=== PATIENT | male | born 1960 | race African-American/Black ===

== ENCOUNTER 2020-04-21 19:52 | Emergency (ER) | payer MEDICAID ==
[~2020-04-21] VITALS: Ht 182.9 cm; Wt 99.0 kg
[2020-04-21] MEDS ORDERED: DIPHENHYDRAMINE 25MG CAPSULE PO ONE (22:30)
[2020-04-21 22:33] LABS: CLARITY URINE CLEAR (CLEAR); COLOR URINE DARK YELLOW (YELLOW); KETONES URINE 1+ (NEGATIVE); LEUKOCYTE ESTERASE URINE TRACE (NEGATIVE); NITRITE URINE NEGATIVE (NEGATIVE); OCCULT BLOOD URINE TRACE (NEGATIVE); PH URINE 5.5 (4.5-8.0); PROTEIN URINE 2+ (NEGATIVE); SPECIFIC GRAVITY URINE 1.034 (1.005-1.030)
[2020-04-21 22:43] LABS: *AMPHETAMINES SCREEN URINE NEGATIVE (NEGATIVE); *BARBITURATES SCREEN URINE NEGATIVE (NEGATIVE); *BENZODIAZEPINES SCREEN URINE NEGATIVE (NEGATIVE)
[2020-04-21 22:44] LABS: *COCAINE SCREEN URINE PRESUMTIVE POSITIVE (NEGATIVE); CANNABINOID URINE SCREEN NEGATIVE (NEGATIVE); METHADONE URINE SCREEN NEGATIVE (NEGATIVE); OPIATES URINE SCREEN NEGATIVE (NEGATIVE); PHENCYCLIDINE URINE SCREEN NEGATIVE (NEGATIVE)
[2020-04-22 00:16] LABS: BASOPHILS % 2.2 % (0.0-2.0); EOSINOPHILS % 1.1 % (0.0-5.0); HEMATOCRIT. 41.9 % (42.0-52.0); HEMOGLOBIN. 13.8 g/dL (14.0-18.0); MEAN CORPUSCULAR HEMOGLOBIN 26.2 pg (28.0-32.0); MEAN CORPUSCULAR VOLUME 79.3 fL (80.0-94.0); MONOCYTES % 8.5 % (2.0-8.0); NEUTROPHILS % 50.2 % (40.0-76.0); PLATELET 210 x1000/uL (130-400); RED BLOOD CELL COUNT 5.28 mill/uL (4.7-6.1); RED CELL DISTRIBUTION WIDTH 15.7 % (11.6-14.6)
[2020-04-22 00:23] LABS: CHLORIDE 106 mEq/L (98-107)
[2020-04-22 00:27] LABS: ETHANOL BLOOD < 10 mg/dL
[2020-04-22] MEDS ORDERED: POTASSIUM CHLORIDE 20MEQ TABLET SR PO ONE (00:30)
[2020-04-22] MEDS ORDERED: KCL 10MEQ/50ML PREMIX 50 ML IV ONE (00:30)
[2020-04-22] MEDS ORDERED: CLONIDINE 0.1MG TABLET PO ONE (02:30)
[2020-04-22 12:21] VITALS: BP 109/67
== END 2020-04-22 12:26 ==
LOC: ER 19:52
DX: F14.10 Cocaine abuse, uncomplicated (principal); E87.6 Hypokalemia; R45.851 Suicidal ideations; F31.9 Bipolar disorder, unspecified; F20.9 Schizophrenia, unspecified; I10 Essential (primary) hypertension; F17.210 Nicotine dependence, cigarettes, uncomplicated
CPT/HCPCS: 36415; 80053; 80305; 80320; 81003; 83735; 85025; 93005; 96365; 99285; J3480; Q0163; G0480